=== PATIENT | female | born 1940 | race Caucasian/White ===

== ENCOUNTER 2022-10-08 15:27 | Emergency (ER) | payer OTHER ==
[~2022-10-08] VITALS: Ht 167.6 cm; Wt 66.2 kg
[2022-10-08] MEDS ORDERED: MECLIZINE HCL 12.5 MG TABLET PO ONE (16:00)
[2022-10-08] MEDS ORDERED: ONDANSETRON 4 MG TAB.RAPDIS PO ONE (16:00)
[2022-10-08] MEDS ORDERED: IV NS 0.9% 500 ML BAG IV ONE ×2 (16:00→20:00)
[2022-10-08] MEDS ORDERED: MECLIZINE HCL 25 MG TABLET ONE (16:04)
[2022-10-08] MEDS ORDERED: ONDANSETRON 4 MG TAB.RAPDIS ONE (16:04)
--- NOTE | 2022-10-08 16:10 | NUR ---
BLOOD DRAWN AND SENT TO LAB
--- NOTE | 2022-10-08 16:10 | NUR ---
iv established. 20G LAC
[2022-10-08] MEDS ORDERED: ONDANSETRON HCL/PF 4 MG/2 ML VIAL ONE (16:13)
--- NOTE | 2022-10-08 16:35 | NUR ---
PATIENT TAKEN TO CT VIA [facility]
[2022-10-08 16:40] LABS: CARBON DIOXIDE 25 mmol/L (21-32); CHLORIDE 98 mmol/L (98-107); CREATININE 0.7 mg/dL (0.6-1.3); GLUCOSE 159 mg/dL (74-106); POTASSIUM 3.7 mmol/L (3.5-5.1); SODIUM SERUM 133 mmol/L (136-145); UREA NITROGEN, BLOOD 16 mg/dL (7-18)
[2022-10-08 16:46] LABS: ALANINE AMINOTRANSFERASE 27 U/L (12-78); ALBUMIN 3.8 g/dL (3.4-5.0); ALKALINE PHOSPHATASE 62 U/L (46-116); ASPARTATE AMINOTRANSFERASE 24 U/L (15-37); BASOPHILS % (AUTO) 0.7 % (0.0-2.0); BILIRUBIN,DIRECT 0.2 mg/dL (0.0-0.2); BILIRUBIN,TOTAL 0.6 mg/dL (0.2-1.0); EOSINOPHILS % (AUTO) 0.4 % (0.0-6.0); HEMATOCRIT 38 % (33-45); HEMOGLOBIN 12.5 g/dL (11.5-14.8); LYMPHOCYTES # (AUTO) 1.2 K/uL (0.8-4.8); LYMPHOCYTES % (AUTO) 20.1 % (20.0-44.0); MEAN CORPUSCULAR HGB CONC 33 g/dl (31.0-36.0); MEAN CORPUSCULAR VOLUME 92 fL (82-100); MONOCYTES # (AUTO) 0.5 K/uL (0.1-1.30); MONOCYTES % (AUTO) 9.1 % (2.0-12.0); NEUTROPHILS % (AUTO) 69.7 % (43.0-81.0); PLATELET COUNT (AUTO) 220 K/uL (150-450); RED BLOOD CELL COUNT(AUTO) 4.07 MIL/uL (4.0-5.2); TOTAL PROTEIN, SERUM 6.8 g/dL (6.4-8.2); WHITE BLOOD COUNT (AUTO) 5.7 K/uL (4.3-11.0)
[2022-10-08] MEDS ORDERED: METOCLOPRAMIDE HCL 10 MG/2 ML VIAL ONE (17:45)
[2022-10-08] MEDS ORDERED: DIAZEPAM 5 MG/ML 2 ML DISP.SYRIN ONE (17:45)
[2022-10-08] MEDS ORDERED: DIAZEPAM 5 MG/ML 2 ML DISP.SYRIN IV ONE (18:00)
[2022-10-08] MEDS ORDERED: METOCLOPRAMIDE HCL 10 MG/2 ML VIAL IV ONE (18:00)
--- NOTE | 2022-10-08 18:20 | NUR ---
CALLED [facility] [phone] PER JUANA Lewis WILL CALL US BACK.
--- NOTE | 2022-10-08 20:23 | NUR ---
PATIENT ACCEPTED AT [facility] UNDER DR. LLOYD ROOM 4057-B # FOR REPORT [phone] PT WILL BE TRANSFERRED VIA [facility] ETA [id number]
--- NOTE | 2022-10-08 20:59 | NUR ---
pt for kristy to [facility]. GAVE REPORT TO KARLOS MERCADO FOR CONT. OF CARE.
--- NOTE | 2022-10-08 21:53 | NUR ---
[facility] AT BED SIDE TO P/U THE PT. REPORT GIVEN
--- NOTE | 2022-10-08 22:01 | NUR ---
PT LEFT ER WITH [facility] EMT TO [facility]
[2022-10-08 22:03] VITALS: BP 132/67; TEMP 98.4
== END 2022-10-08 22:04 | disposition short-term general hospital (02) ==
LOC: ER 15:30
DX: R42 Dizziness and giddiness (principal); R11.10 Vomiting, unspecified; Z88.0 Allergy status to penicillin; Z88.8 Allergy status to other drugs, medicaments and biological substances; Z20.822 Contact with and (suspected) exposure to COVID-19
CPT/HCPCS: 99285; 96374; 70450; 71045; 96361; 96375; 87426; 93005; 85025; 80048; 80076; 36415; 84484; J8597; J3360; J2765; J7040; Q0162; C9803; J2405

== ENCOUNTER 2024-11-11 15:01 | Emergency (ER) | payer OTHER ==
[~2024-11-11] VITALS: Ht 165.1 cm; Wt 52.2 kg
[2024-11-11 15:19] VITALS: TEMP 98
[2024-11-11 15:33] LABS: BASOPHILS # (AUTO) 0.1 K/uL (0.0-0.2); BASOPHILS % (AUTO) 1.2 % (0.0-2.0); EOSINOPHILS % (AUTO) 0.3 % (0.0-6.0); HEMATOCRIT 40 % (33-45); HEMOGLOBIN 13.5 g/dL (11.5-14.8); LYMPHOCYTES # (AUTO) 1.2 K/uL (0.8-4.8); LYMPHOCYTES % (AUTO) 17.4 % (20.0-44.0); MEAN CORPUSCULAR HEMOGLOBIN 32 PG (26.0-33.0); MEAN CORPUSCULAR HGB CONC 34 g/dl (31.0-36.0); MEAN CORPUSCULAR VOLUME 94 fL (82-100); MONOCYTES # (AUTO) 0.7 K/uL (0.1-1.30); MONOCYTES % (AUTO) 9.8 % (2.0-12.0); NEUTROPHILS # (AUTO) 4.8 K/uL (1.8-8.9); NEUTROPHILS % (AUTO) 71.3 % (43.0-81.0); PLATELET COUNT (AUTO) 230 K/uL (150-450); RED BLOOD CELL COUNT(AUTO) 4.27 MIL/uL (4.0-5.2); RED CELL DISTRIBUTION WIDTH 13.6 % (11.5-15.0); WHITE BLOOD COUNT (AUTO) 6.7 K/uL (4.3-11.0)
[2024-11-11 16:08] LABS: D-DIMER 0.28 mg/L(FEU (0.17-0.50); INR 0.98 (0.91-1.10); PARTIAL THROMBOPLASTIN TIME 25.1 SEC (24.3-34.3); PROTHROMBIN TIME 10.4 SECS (9.2-11.1)
[2024-11-11 16:38] LABS: CALCIUM, SERUM 8.9 mg/dL (8.5-10.1); CARBON DIOXIDE 29 mmol/L (21-32); CHLORIDE 97 mmol/L (98-107); CREATININE 0.7 mg/dL (0.6-1.3); GLUCOSE 104 mg/dL (74-106); POTASSIUM 3.7 mmol/L (3.5-5.1); SODIUM SERUM 135 mmol/L (136-145); UREA NITROGEN, BLOOD 15 mg/dL (7-18)
[2024-11-11] MEDS: IV NS 0.9% 1,000 ML BAG IV ONE (16:45)
[2024-11-11 16:52] LABS: ALANINE AMINOTRANSFERASE 28 U/L (12-78); ALBUMIN 3.9 g/dL (3.4-5.0); ALKALINE PHOSPHATASE 84 U/L (46-116); ASPARTATE AMINOTRANSFERASE 32 U/L (15-37); BILIRUBIN,DIRECT 0.1 mg/dL (0.0-0.2); BILIRUBIN,TOTAL 0.5 mg/dL (0.2-1.0); NT-PRO BNP 148 pg/mL (0-125); TOTAL PROTEIN, SERUM 7.4 g/dL (6.4-8.2)
[2024-11-11] MEDS ORDERED: ADENOSINE 6 MG/2 ML VIAL ONE (18:05)
[2024-11-11] MEDS: ADENOSINE 6 MG/2 ML VIAL IVP ONE (18:09)
[2024-11-11] MEDS ORDERED: METOPROLOL SUCCINATE 25 MG TAB.SR.24H ONE (18:56)
[2024-11-11] MEDS ORDERED: ASPIRIN 81 MG TAB.CHEW ONE (18:57)
[2024-11-11] MEDS ORDERED: MINE3.5O13 EACHEYE (19:02)
[2024-11-11] MEDS ORDERED: LACT1CAP69 PO (19:02)
[2024-11-11] MEDS ORDERED: CARB15DR EACHEYE (19:02)
[2024-11-11] MEDS ORDERED: CLOT15CR27 TP (19:02)
[2024-11-11] MEDS ORDERED: CHOL100062 PO (19:02)
[2024-11-11] MEDS ORDERED: TRAM50TA2 PO (19:02)
[2024-11-11] MEDS ORDERED: CLOP75TA15 PO (19:02)
[2024-11-11] MEDS ORDERED: ACYC400T19 PO (19:02)
[2024-11-11] MEDS ORDERED: FAMO20TA80 PO (19:02)
[2024-11-11] MEDS ORDERED: UBID30CA11 PO (19:02)
[2024-11-11] MEDS ORDERED: CALC-36 PO (19:02)
[2024-11-11] MEDS ORDERED: VITA-354 PO (19:02)
[2024-11-11] MEDS ORDERED: METH500T4 PO (19:02)
[2024-11-11] MEDS ORDERED: MELA5TAB PO (19:02)
[2024-11-11] MEDS ORDERED: PRAV20TA4 PO (19:02)
[2024-11-11] MEDS ORDERED: PEPP90CA PO (19:02)
[2024-11-11] MEDS: ASPIRIN 81 MG TAB.CHEW PO ONE (19:05)
[2024-11-11] MEDS: METOPROLOL SUCCINATE 25 MG TAB.SR.24H PO STA (19:05)
[2024-11-11 20:30] VITALS: BP 135/79; O2SAT 97
== END 2024-11-11 21:23 | disposition short-term general hospital (02) ==
LOC: ER 15:05
DX: I47.10 Supraventricular tachycardia, unspecified (principal); R06.02 Shortness of breath; Z79.02 Long term (current) use of antithrombotics/antiplatelets; Z88.0 Allergy status to penicillin; Z88.1 Allergy status to other antibiotic agents; Z88.6 Allergy status to analgesic agent; Z88.8 Allergy status to other drugs, medicaments and biological substances; Z79.899 Other long term (current) drug therapy
CPT/HCPCS: 99291; 96374; 96361; 93005; 71045; 85025; 80048; 80076; 83735; 85378; 36415; 84484 ×2; 85730; 83880; J0153; J7030